=== PATIENT | female | born 1985 | race Caucasian/White ===

== ENCOUNTER → 2019-04-14 19:18 | Outpatient (CLI) | payer OTHER, SELFPAY ==
[2019-04-14 19:57] LABS: Influenza A - CEPHEID Flu A NEGATIVE (NEGATIVE); Influenza B - CEPHEID Flu B POSITIVE (NEGATIVE)
== END ==
PROVIDERS: PCP Family Medicine; Visit Provider Physician Assistant
DX: J11.1 Influenza due to unidentified influenza virus with other respiratory manifestations (principal)
CPT/HCPCS: 87502